=== PATIENT | male | born 1970 | race African-American/Black ===

== ENCOUNTER 2019-12-13 00:03 | Inpatient (IN) | payer OTHER ==
[~2019-12-13] VITALS: Ht 175.3 cm; Wt 71.0 kg
[2019-12-13] MEDS ORDERED: OXYcodone/APAP 5/325MG TABLET PO ONE (02:00)
[2019-12-13] MEDS ORDERED: OXYcodone/APAP 5/325MG TABLET ONE (02:17)
--- NOTE | 2019-12-13 02:27 | NUR ---
PATIENT UPDATED ON PLAN OF CARE. PATIENT HAS CALLED SIGNIFICANT OTHER FOR SAFE DISCHARGE HOME. TECH AT BEDSIDE WITH PATIENT PERFORMING SPLINT CARE. PATIENT HAS VERBALIZED UNDERSTANDING OF DISCHARGE EDUCATION AND FOLLOW UP CARE.
--- NOTE | 2019-12-13 02:55 | NUR ---
PATIENT AIDED WITH URINAL, TOLERATED WELL. WILL AWAIT FOR DISCHARGE INFORMATION
[2019-12-13] MEDS ORDERED: MORPHINE SULFATE 4 MG/ML, 1ML ONE (03:52)
[2019-12-13] MEDS ORDERED: MORPHINE SULFATE 4 MG/ML, 1ML IVPush PRN (04:00)
--- NOTE | 2019-12-13 04:15 | NUR ---
PATIENT ADMISSION MD AT BEDSIDE. UPDATED ON PLAN OF CARE.
[2019-12-13] MEDS ORDERED: ACETAMINOPHEN 325 MG TABLET PO PRN ×2 (05:00→14:30)
[2019-12-13] MEDS ORDERED: TRAZODONE 50MG TABLET PO PRN (05:00)
[2019-12-13] MEDS ORDERED: ONDANSETRON 2MG/ML, 2ML IVPush PRN ×2 (05:00→14:30)
[2019-12-13] MEDS ORDERED: hydrALAzine 20 MG/ML, 1ML IVPush PRN (05:00)
[2019-12-13 05:16] VITALS: BP 155/101
[2019-12-13] MEDS: HYDROmorphone 2 MG/ML, 1ML IVPush PRN ×3 (06:01→11:45)
[2019-12-13 06:21] LABS: AMPHETAMINE SCREEN, URINE Positive (Negative); BARBITURATE SCREEN, URINE Negative (Negative); BENZODIAZEPINE SCREEN, URINE Negative (Negative); CANNABINOID SCREEN, URINE Positive (Negative); COCAINE SCREEN, URINE Negative (Negative); METHADONE SCREEN, URINE Negative (Negative); OPIATE SCREEN, URINE Positive (Negative)
[2019-12-13 08:26] VITALS: BP 139/92
[2019-12-13] MEDS: SENNA/DOCUSATE TABLET PO SCH (08:55)
[2019-12-13] MEDS ORDERED: HYDROmorphone 1 MG/ML, 1ML INJ ONE ×2 (09:08→10:38)
[2019-12-13] MEDS: OXYcodone IR 5MG TABLET PO PRN ×2 (09:20→19:43)
[2019-12-13] MEDS ORDERED: BUPIVACAINE/PF-EPI 0.5% 1:200K ONE (12:29)
[2019-12-13] MEDS ORDERED: FENTANYL PF 250 MCG/5ML ONE ×2 (12:51→13:20)
[2019-12-13] MEDS ORDERED: MIDAZOLAM 1 MG/ML, 2ML ONE (12:51)
[2019-12-13] MEDS ORDERED: CHLORHEXIDINE 15 ML UDC MM ONE (13:00)
[2019-12-13] MEDS ORDERED: HYDROmorphone 2 MG/ML, 1ML ONE (13:11)
[2019-12-13] MEDS ORDERED: GLYCOPYRROLATE 0.2MG/1ML, 5ML ONE (14:02)
[2019-12-13] MEDS ORDERED: CEFAZOLIN 1,000 MG ONE (14:02)
[2019-12-13] MEDS ORDERED: ROCURONIUM 10MG/ML,5ML ONE (14:02)
[2019-12-13] MEDS ORDERED: ONDANSETRON 2MG/ML, 2ML ONE (14:02)
[2019-12-13] MEDS ORDERED: SUCCINYLCHOLINE 20 MG/ML, 10ML ONE (14:02)
[2019-12-13] MEDS ORDERED: NEOSTIGMINE 1 MG/ML, 10ML ONE (14:02)
[2019-12-13] MEDS ORDERED: DEXAMETHASONE 4 MG/ML, 1ML ONE (14:02)
[2019-12-13] MEDS ORDERED: PROPOFOL 10 MG/ML, 20ML ONE (14:02)
[2019-12-13] MEDS ORDERED: MEPERIDINE/PF 50 MG/ML ONE (14:07)
[2019-12-13] MEDS ORDERED: LABETALOL 5MG/ML, 20ML ONE (14:25)
[2019-12-13] MEDS: LABETALOL 5MG/ML, 20ML IV PRN ×2 (14:26→14:38)
[2019-12-13] MEDS ORDERED: LORazepam 2 MG/ML, 1ML IVPush PRN (14:30)
[2019-12-13] MEDS ORDERED: PROMETHAZINE 25 MG/ML, 1ML IVPush PRN (14:30)
[2019-12-13] MEDS ORDERED: DIAZEPAM 5 MG/ML, 2ML IVPush PRN (14:30)
[2019-12-13] MEDS ORDERED: PROMETHAZINE 12.5 MG SUPP PR PRN (14:30)
[2019-12-13] MEDS ORDERED: MEPERIDINE/PF 25MG/0.5ML IVPush PRN (14:30)
[2019-12-13] MEDS ORDERED: OXYcodone 5 MG/5 ML ORAL.SOL UDC PO PRN (14:30)
[2019-12-13] MEDS ORDERED: HYDROmorphone 1 MG/ML, 1ML INJ IVPush PRN (14:30)
[2019-12-13] MEDS ORDERED: hydrALAzine 20 MG/ML, 1ML ONE ×2 (14:43→15:07)
[2019-12-13] MEDS: hydrALAzine 20 MG/ML, 1ML IV PRN ×2 (14:47→15:23)
[2019-12-13] MEDS ORDERED: OXYcodone 5 MG/5 ML ORAL.SOL UDC ONE (15:11)
[2019-12-13] MEDS ORDERED: FENTANYL PF 100 MCG/2ML ONE (15:11)
[2019-12-13] MEDS: FENTANYL PF 100 MCG/2ML IV PRN ×2 (15:16→15:30)
[2019-12-13] MEDS ORDERED: OXYcodone IR 5MG TABLET PO PRN (16:30)
[2019-12-13 19:02] VITALS: BP 160/91
[2019-12-13] MEDS: DOCUSATE 100 MG CAPSULE PO SCH (19:42)
[2019-12-13] MEDS ORDERED: CEFAZOLIN 2,000 MG in SODIUM CHLORIDE 0.9% 50 ML IV SCH (21:00)
[2019-12-13] MEDS: CEFAZOLIN PMX 2GM/50ML 50 ML IVPB SCH (23:11)
[2019-12-13 23:22] VITALS: BP 139/87
[2019-12-14] MEDS: OXYcodone IR 5MG TABLET PO PRN ×4 (00:33→17:51)
[2019-12-14 03:43] VITALS: BP 145/78
[2019-12-14] MEDS: ENOXAPARIN 40 MG/0.4 ML SQ SCH (05:44)
[2019-12-14 06:24] VITALS: BP 150/87
[2019-12-14] MEDS: CEFAZOLIN PMX 2GM/50ML 50 ML IVPB SCH ×2 (06:30→15:52)
[2019-12-14] MEDS: SENNA/DOCUSATE TABLET PO SCH (09:11)
[2019-12-14] MEDS: DOCUSATE 100 MG CAPSULE PO SCH ×2 (09:11→20:01)
[2019-12-14] MEDS: METHOCARBAMOL 500 MG TABLET PO PRN ×2 (09:13→17:51)
[2019-12-14 11:11] LABS: MEAN CORPUSCULAR HGB CONC 32.5 g/dL (33.2-36.2); MEAN CORPUSCULAR VOLUME 83.1 fL (81-97); MEAN PLATELET VOLUME 9.6 fL (7.4-10.4); PLATELET COUNT 279 x10^3/uL (130-400); RED CELL DISTRIBUTION WIDTH 15.1 % (9.4-14.8)
[2019-12-14 11:23] LABS: CHLORIDE 102 mmol/L (98-107)
[2019-12-14 11:29] LABS: BASOPHILS # (AUTO) 0.03 x10^3/uL (0-0.1); BASOPHILS % (AUTO) 0 % (0-1); EOSINOPHILS # (AUTO) 0.02 x10^3/uL (0-0.4); EOSINOPHILS % (AUTO) 0 % (1-7); LYMPHOCYTES # (AUTO) 2.09 x10^3/uL (1-3.4); LYMPHOCYTES % (AUTO) 15 % (22-44); MD SCAN; MONOCYTES % (AUTO) 11 % (2-9); NEUTROPHILS # (AUTO) 10.23 x10^3/uL (1.8-6.8); NEUTROPHILS % (AUTO) 74 % (42-75)
[2019-12-14 11:38] LABS: ALANINE AMINOTRANSFERASE 17 U/L (12-78); ALBUMIN 3.4 g/dL (3.4-5.0); ALKALINE PHOSPHATASE 95 U/L (45-117); ANION GAP 7 mmol/L (5-15); BILIRUBIN,TOTAL 0.5 mg/dL (0.2-1.0); CALCIUM 9.6 mg/dL (8.5-10.1); CREATININE 0.95 mg/dL (0.7-1.3); TOTAL PROTEIN 8.3 g/dL (6.4-8.2)
[2019-12-14 12:50] VITALS: BP 154/89
[2019-12-14] MEDS ORDERED: HYDROmorphone 2 MG/ML, 1ML IVPush PRN (16:00)
[2019-12-14 18:39] VITALS: BP 156/90
[2019-12-15] MEDS: OXYcodone IR 5MG TABLET PO PRN ×2 (00:01→06:20)
[2019-12-15 01:29] VITALS: BP 150/90
[2019-12-15 06:11] LABS: ANION GAP 6 mmol/L (5-15); CALCIUM 9.5 mg/dL (8.5-10.1); CHLORIDE 100 mmol/L (98-107); CREATININE 0.97 mg/dL (0.7-1.3)
[2019-12-15 06:16] LABS: MEAN CORPUSCULAR HEMOGLOBIN 26.6 pg (27.5-34.5); MEAN CORPUSCULAR HGB CONC 31.9 g/dL (33.2-36.2); MEAN CORPUSCULAR VOLUME 83.4 fL (81-97); MEAN PLATELET VOLUME 9.1 fL (7.4-10.4); PLATELET COUNT 352 x10^3/uL (130-400); RED BLOOD COUNT 5.42 x10^6/uL (4.38-5.82); RED CELL DISTRIBUTION WIDTH 15.1 % (9.4-14.8)
[2019-12-15] MEDS: ENOXAPARIN 40 MG/0.4 ML SQ SCH (06:20)
[2019-12-15 06:35] LABS: BASOPHILS # (AUTO) 0.01 x10^3/uL (0-0.1); BASOPHILS % (AUTO) 0 % (0-1); EOSINOPHILS # (AUTO) 0.02 x10^3/uL (0-0.4); EOSINOPHILS % (AUTO) 0 % (1-7); LYMPHOCYTES % (AUTO) 18 % (22-44); MD SCAN; MONOCYTES # (AUTO) 0.88 x10^3/uL (0.2-0.8); MONOCYTES % (AUTO) 8 % (2-9); NEUTROPHILS # (AUTO) 7.83 x10^3/uL (1.8-6.8); NEUTROPHILS % (AUTO) 74 % (42-75)
[2019-12-15 06:38] VITALS: BP 128/83
[2019-12-15] MEDS: DOCUSATE 100 MG CAPSULE PO SCH (07:53)
[2019-12-15] MEDS: SENNA/DOCUSATE TABLET PO SCH (07:53)
[2019-12-15] MEDS ORDERED: ONDA4TAB7 PO (13:14)
[2019-12-15] MEDS ORDERED: OXYC5TAB3 PO (13:14)
[2019-12-15] MEDS ORDERED: DOCU100C33 PO (13:14)
[2019-12-15] MEDS ORDERED: ASPI-650 PO (13:14)
[2019-12-15 13:58] VITALS: BP 132/88
[2019-12-15 16:03] VITALS: BP 132/68
== END 2019-12-15 16:10 | disposition home or self-care (01) | DRG 493 ==
LOC: ED 03:54 → OBSVTOIN 04:12 → EDIP 04:12 → INTOOBSV 04:12 → 3N 05:00 → 4NE 18:56
PROVIDERS: ADMIT Student in an Organized Health Care Education/Training Program; ATTEND Student in an Organized Health Care Education/Training Program
PROC: 0QSH04Z Reposition Left Tibia with Internal Fixation Device, Open Approach (ICD-10-PCS; 2019-12-13)
PROC: 0QSHXZZ Reposition Left Tibia, External Approach (ICD-10-PCS; 2019-12-13)
PROC: 0QSK04Z Reposition Left Fibula with Internal Fixation Device, Open Approach (ICD-10-PCS; principal; 2019-12-13 13:15)
DX: S82.65XA Nondisplaced fracture of lateral malleolus of left fibula, initial encounter for closed fracture (principal); S82.202A Unspecified fracture of shaft of left tibia, initial encounter for closed fracture; S82.54XA Nondisplaced fracture of medial malleolus of right tibia, initial encounter for closed fracture; W13.0XXA Fall from, out of or through balcony, initial encounter; F17.210 Nicotine dependence, cigarettes, uncomplicated; F12.10 Cannabis abuse, uncomplicated; Z82.49 Family history of ischemic heart disease and other diseases of the circulatory system; Y93.89 Activity, other specified; Y92.89 Other specified places as the place of occurrence of the external cause; Y99.8 Other external cause status
CPT/HCPCS: 29125; 36415; 76000; 80048; 80053; 80307; 83735; 85025; 96374; 99285; C1713; G0378; J0690; J1100; J1170; J1650; J2175; J2250; J2405; J2704; J2710; J3010; J0330; J0360; J2270